=== PATIENT | female | born 1965 | race Caucasian/White ===

== ENCOUNTER 2017-10-20 05:19 | Inpatient (IN) | payer BC ==
[2017-10-03 11:31] VITALS: BMI 29.0
--- NOTE | 2017-10-03 12:07 | PAT Medication Instructions ---
Service Date Oct 03, 2017. Current Home Medication List Ascorbic Acid (Vitamin C), 500 MG PO QAM Calcium/Vitamin D (Os-Favio 500 Plus D), 1 TAB PO HS Cyanocobalamin (Vitamin B-12), 2,000 MCG PO HS Fish Oil (Plano-3), 2 CAP PO HS Bvpfskqpwff-Rbakzzxpeaj-Hof C- (Glucosamine Chondroitin), 2 TAB PO QAM Multivitamin (Multivitamin), 1 TAB PO HS Naproxen (Aleve), 220 MG PO PRN [Iron], 65 MG PO QPM Medication Instructions For Your Scheduled Surgery - Hold the following medications 1 week prior to surgery per surgeon: Naproxen (Aleve), 220 MG PO PRN Fish Oil (Plano-3), 2 CAP PO HS Nfyswgjrgpk-Dmqikeuhxmv-Rir C- (Glucosamine Chondroitin), 2 TAB PO QAM - Hold the following medications the morning of surgery: Ascorbic Acid (Vitamin C), 500 MG PO QAM - Take the following medications as scheduled the night before surgery: Calcium/Vitamin D (Os-Favio 500 Plus D), 1 TAB PO HS Cyanocobalamin (Vitamin B-12), 2,000 MCG PO HS Multivitamin (Multivitamin), 1 TAB PO HS [Iron], 65 MG PO QPM If you have any questions please call us at [phone] or [phone] or [phone]
[2017-10-03 13:16] LABS: BASO % 1.9 %; EOS % 1.3 %; EOS ABS # 0.07 K/uL (0-0.5); HEMATOCRIT 41.6 % (37-47); HEMOGLOBIN 13.5 g/dL (12.0-16.0); LYMPH % 35.5 %; LYMPH ABS # 1.88 K/uL (1.2-3.4); MEAN CELL VOLUME 89.7 fL (80-100); MEAN CORPUSCULAR HEMOGLOBIN 29.1 pg (25-34); MEAN CORPUSCULAR HGB CONC 32.5 g/dl (32-36); MEAN PLATELET VOLUME 10.7 fL (7.4-10.4); MONO % 5.7 %; NEUT % 55.6 %; NEUT ABS # 2.94 K/uL (1.4-6.5); PLATELET COUNT 237 K/uL (130-400); RED CELL DISTRIBUTION WIDTH SD 42.7 fL (36.4-46.3); WHITE BLOOD COUNT 5.29 K/uL (4.8-10.8)
--- NOTE | 2017-10-03 13:18 | DIAGNOSTIC IMAGING REPORT ---
CHEST 2 VIEWS ROUTINE HISTORY: Preop. COMPARISON: Chest 08/01/2016. FINDINGS: The lungs are clear. Cardiac silhouette is normal in size. No pleural effusions. No pneumothorax. IMPRESSION: No acute process. Electronically signed by: Augie Casper M.D. 10/03/2017 1:17 PM Dictated Date/Time: 10/03/2017 1:16 PM
[2017-10-03 13:30] LABS: INR 0.9 (0.9-1.1); PTT PATIENT 28.5 SECONDS (21.0-31.0)
[2017-10-03 13:45] LABS: HEMOGLOBIN A1C 5.7 % (4.5-5.6)
[2017-10-03 14:49] LABS: ALBUMIN 3.9 gm/dl (3.4-5.0); CALCIUM 9.1 mg/dl (8.5-10.1); CREATININE 0.91 mg/dl (0.60-1.20); POTASSIUM 4.3 mmol/L (3.5-5.1)
--- NOTE | 2017-10-09 12:52 | HISTORY & PHYSICAL EXAMINATION ---
DATE OF ADMISSION: 10/20/2017 CHIEF COMPLAINT: Right knee pain. HISTORY OF PRESENT ILLNESS: Mrs. Evans is a 51-year-old female with more than 1 year history of right knee pain. The patient rates her pain a 02/22. She has pain with her daily activities. She has limited standing and walking tolerance. Pain is worse with weightbearing. The patient has had injections, PT, and NSAIDs without relief. She has failed conservative treatment and is scheduled for a right knee replacement. PAST MEDICAL HISTORY: Negative. She denies heart disease, diabetes or DVT. PAST SURGICAL HISTORY: Laminectomy and right knee arthroscopy. SOCIAL HISTORY: The patient denies alcohol or tobacco use. She lives in a 2-brody home. She is . 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 FAMILY HISTORY: Negative for DVT. MEDICATIONS: Glucosamine and chondroitin, fish oil, multivitamin, calcium 600, vitamin C 500 mg, Aleve p.r.n. ALLERGIES: None. REVIEW OF SYSTEMS: See HPI. Ten other systems reviewed, all negative. PHYSICAL EXAMINATION: VITAL SIGNS: Height is 5 feet 4 inches, weight 177 pounds. BMI is 30. GENERAL: This is a well-developed, well-nourished female who is alert and oriented x3. Mood and affect are appropriate. HEENT: Normocephalic, atraumatic. Mucous membranes are moist and intact. NECK: Supple without lymphadenopathy. HEART: Regular rate and rhythm without murmurs, rubs or gallops. LUNGS: Clear to auscultation without wheezes or rhonchi. ABDOMEN: Soft and nontender. Bowel sounds are equal and active. EXTREMITIES: No ecchymosis, redness or warmth. She has varus deformity. Range of motion is from 0-115 degrees with no laxity. She is neurovascularly intact with +5/5 strength. X-RAY EXAMINATION: AP and lateral views show joint space narrowing and osteophyte formation. IMPRESSION: Degenerative joint disease, right knee. PLAN: The patient will be admitted for a right total knee arthroplasty. We will plan on aspirin for DVT prophylaxis. The patient will likely have home nursing agency for home PT upon discharge.
[~2017-10-20] VITALS: Ht 162.6 cm; Wt 78.4 kg
[2017-10-20] VITALS (11 sets, daily range): BP systolic 105–126; BP diastolic 64–77; PULSE 52–68; TEMP 36.3–36.7; O2SAT 94–99; Ht 162.6 cm; Wt 78.4 kg
[~2017-10-20 05:19] MED LIST: ASCO1CAP3 PO; CALC500C70 PO; CYAN10005 PO; GLUC1CAP35 PO; IRON PO; MULT-506 PO; NAPR1TAB9 PO; OMEG10007 PO
[2017-10-20] MEDS ORDERED: FAMOTIDINE 20 MG TAB PO SCH (06:00)
[2017-10-20] MEDS ORDERED: ACETAMINOPHEN 500 MG TAB PO SCH (06:00)
[2017-10-20] MEDS ORDERED: METOCLOPRAMIDE HCL 10 MG TAB PO SCH (06:00)
[2017-10-20] MEDS ORDERED: DEXAMETHASONE 4 MG TAB PO SCH (06:00)
[2017-10-20] MEDS ORDERED: GABAPENTIN 300 MG CAP PO SCH (06:00)
[2017-10-20] MEDS ORDERED: CeleBREX 200 MG CAP PO SCH (06:00)
[2017-10-20] MEDS ORDERED: ROPIVACAINE 5MG/ML 30 ML 150 MG, BUPIVACAINE 0.5% MPF INJ 30 ML, EpINEphrine HCL INJ 0.... INFIL SCH ×8 (06:00)
[2017-10-20] MEDS ORDERED: CEFAZOLIN 1000MG IV PUSH 7.5 ML IV SCH (06:00)
[2017-10-20] MEDS ORDERED: LACTATED RINGER'S 1000ML 1,000 ML IV SCH ×2 (06:00)
[2017-10-20] MEDS ORDERED: LACTATED RINGER'S 1000ML 500 ML IV SCH (06:00)
[2017-10-20] MEDS ORDERED: ORTHO JOINT ANESTHETIC ONE (06:29)
[2017-10-20] MEDS ORDERED: BACITRACIN 50000 UNIT VIAL ONE (06:29)
[2017-10-20] MEDS ORDERED: POVIDONE-IODINE OP SOLN 30 ML BTL ONE (06:29)
[2017-10-20] MEDS: TRANEXAMIC ACID INJ 1,000 MG in SYRINGE 0 ML IV SCH ×2 (06:30→06:36)
[2017-10-20] MEDS ORDERED: BUPIVACAINE 0.25% 30 ML VIAL ONE (06:37)
[2017-10-20] MEDS ORDERED: BUPIVACAINE 0.5 % 5 MG/1 ML PF 10ML VIAL ONE (06:37)
[2017-10-20] MEDS ORDERED: MIDAZOLAM HCL 1 MG/ML 2ML VIAL ONE ×2 (06:39)
[2017-10-20] MEDS ORDERED: FENTANYL CITRATE INJ 50 MCG/1 ML 2 ML VIAL ONE (06:39)
[2017-10-20] MEDS ORDERED: FENTANYL CITRATE INJ 50 MCG/1 ML 2 ML VIAL IV PRN (06:45)
[2017-10-20] MEDS ORDERED: ATROPINE SULFATE 0.1 MG/ML 5ML SYR IV PRN (06:45)
[2017-10-20] MEDS ORDERED: EpHEDrine SULFATE INJ 50 MG/ML AMP IV PRN (06:45)
[2017-10-20] MEDS ORDERED: ONDANSETRON INJ 2 MG/ML 2 ML VIAL IV PRN ×2 (06:45→08:45)
--- NOTE | 2017-10-20 07:08 | History & Physical Bridge Note ---
H&P Re-Evaluation Bridge Note: I have examined the patient, reviewed the History & Physical and in the interval since the performance of the History & Physical I have noted the following changes of clinical significance: No changes noted
[2017-10-20] MEDS ORDERED: PROPOFOL IV EMULSION 10 MG/ML 20 ML VIAL IV ONE (07:46)
[2017-10-20] MEDS ORDERED: LIDOCAINE HCL 2% 2 ML VIAL (20MG/ML) ONE (07:46)
--- NOTE | 2017-10-20 08:00 | [facility] Post Operative Brief Note ---
Immediate Operative Summary Operative Date Oct 20, 2017. Pre-Operative Diagnosis djd KNEE Post-Operative Diagnosis same Procedure(s) Performed tka R Surgeon Che Hvac Journeyman Surgeon(s) Tj Estimated Blood Loss 10cc Findings Consistent with Post-Op Diagnosis Specimens bone Anesthesia Type MAC Spinal Regional Complication(s) none Disposition Accompanied Pt To Recover: no Disposition: Recovery Room / PACU
[2017-10-20] MEDS ORDERED: MAGNESIUM HYDROXIDE SUSP 30 ML UDC PO PRN (08:45)
[2017-10-20] MEDS ORDERED: MoRPHine SULFATE 2 MG/ML CARP IV PRN (08:45)
[2017-10-20] MEDS ORDERED: ALUMINUM/MAGNESIUM/SIMETH (MAALOX MAX) 30 ML UDC PO PRN (08:45)
[2017-10-20] MEDS: MULTIVITAMIN TAB PO SCH (09:00)
--- NOTE | 2017-10-20 09:06 | DIAGNOSTIC IMAGING REPORT ---
R KNEE 1 OR 2 VIEWS ROUTINE HISTORY: 51 years-old Female AP/LATERAL IN PACU RIGHT KNEE degenerative joint disease. Status post right knee total joint arthroplasty. COMPARISON: None available TECHNIQUE: AP and lateral views of the right knee FINDINGS: Postoperative changes compatible with recent right knee total joint arthroplasty and patella resurfacing. Minimal cortical irregularity is noted along the medial femoral condyle and medial aspect of the proximal tibial metaphysis, likely postsurgical findings without large periprosthetic fracture or malalignment identified. Surgical drain is in place along with expected postsurgical soft tissue swelling and deep tissue air. No retained foreign body identified. IMPRESSION: Status post right knee total joint arthroplasty and patellar resurfacing with satisfactory alignment. The above report was generated using voice recognition software. It may contain grammatical, syntax or spelling errors. Electronically signed by: Liam De Oliveira M.D. 10/20/2017 9:04 AM Dictated Date/Time: 10/20/2017 8:59 AM
--- NOTE | 2017-10-20 09:25 | Anesthesiology Progress Note ---
Anesthesia Post Op Note Date & Time Oct 20, 2017 at 09:25 Vital Signs Pain Intensity: 0 Vital Signs Past 12 Hours Date Time Temp Pulse Resp B/P (MAP) Pulse Ox O2 Delivery O2 Flow Rate FiO2 10/20/17 09:11 117/65 10/20/17 09:08 59 13 97 10/20/17 09:08 36.7 58 16 117/65 (77) 97 Room Air 10/20/17 09:08 58 13 10/20/17 09:07 59 15 97 10/20/17 09:07 58 15 10/20/17 09:06 104/60 10/20/17 09:02 62 13 97 10/20/17 09:02 62 13 10/20/17 09:01 116/67 10/20/17 08:57 67 14 96 10/20/17 08:57 65 14 10/20/17 08:56 62 14 10/20/17 08:56 62 14 106/61 97 10/20/17 08:51 69 14 109/66 96 10/20/17 08:51 69 14 10/20/17 08:46 69 13 114/64 96 10/20/17 08:46 69 13 10/20/17 08:42 115/65 10/20/17 08:41 36.6 72 11 115/65 96 Room Air 10/20/17 05:45 36.7 58 20 120/77 97 Room Air Notes Neuraxial Anesthesia: was administered, sensory block is resolving
--- NOTE | 2017-10-20 09:31 | OPERATIVE REPORT ---
DATE OF OPERATION: 10/20/2017 PREOPERATIVE DIAGNOSIS: Osteoarthritis, right knee. POSTOPERATIVE DIAGNOSIS: Osteoarthritis, right knee. PROCEDURE: Right total knee arthroplasty. SURGEON: Dr. Bolton. COMPLICATIONS: None. OPERATION AND FINDINGS: Following induction of spinal anesthesia, the patient's right leg was prepped and draped in the usual sterile manner. Limb was exsanguinated with an Esmarch bandage and tourniquet was inflated to 350 mmHg. A longitudinal incision was made anteriorly. Subcutaneous tissue was sharply dissected. Electrocautery was used for hemostasis. Prepatellar bursa was incised and median parapatellar incision was performed. Patella was everted and the knee was flexed. Fat pad was removed to aid in visualization and the anterior and posterior cruciate ligaments were removed. The medial face of the tibia was cleared of soft tissue first with a Bovie and a Carlson elevator. This tissue was retracted posteriorly using a blunt Hohmann. A Moreno retractor was used to expose the synovium above on the anterior aspect of the femur and this was removed down to bone. The PSI guide was placed on the distal femur and two pins were placed anteriorly and kept in position and two additional pins were placed distally and removed. The distal femoral cutting block was placed in position and the distal femoral cut was used in the +0 setting. Next, the cutting block was removed and the femoral size 3 block was placed in the distal end of the femur. Care was taken to ensure appropriate external rotation and feeler gauge was used to ensure no notching would occur. The femoral block was centered on the distal femur and in the medial and lateral direction and was fixed using two bone screws. The gold pins were then removed. The oscillating saw was used to create the bone cuts and the distal femoral cutting block was removed and the reciprocating saw was used to further trim the femoral cuts as well as a deep in the area for the trochlear groove. Next, posterior condyle remnants were removed. Following this, a meniscal clamp and knife were utilized to remove the anterior portion of both medial and lateral meniscus. The proximal tibia PSI guide was placed into position and the proximal tibial cutting guide was screwed into position. The extra medullary alignment guide was utilized to ensure appropriate alignment. The proximal tibia was cut and the proximal tibial cutting block was removed and this bone fragment was removed. The appropriate guide was used to perform the notch cut on the distal femur and a lamina bleach boiler filler and a cochlear knife were utilized to finish both medial and lateral meniscectomies to remove any remnants of the posterior or anterior cruciate ligaments. Following this, the distal femoral component was impacted into position and blunt Rj was used to sublux the tibia anteriorly. The proximal tibia was sized and a size 2 tibial tray was chosen as the size to be used. This was put into position and appropriate external rotation and a double check with extramedullary alignment guide was performed. The canal for the tibial stem was prepared first with a 17-mm drill and then the punch and a mallet and the trial tibial poly was placed. A size 13 was chosen the size to be used. It was brought to extension and the patella was prepared with the patellar reamer. A size 3 component was chosen the size to be used. The trial component was placed and knee was taken through a full range of motion and there was found to be no lateral subluxation of the tibia. No lateral release was required. The trials were all removed. The final components were obtained and assembled. Cement was mixed. The knee was thoroughly irrigated and the ortho mix was injected about the knee joint. The final components were cemented into position. After thoroughly suctioning and drying the bone ends, all excess cement was removed. The knee was held in extension while the cement hardened. The wound was irrigated and closed over a Hemovac drain. #1 Vicryl was used to close the extensor mechanism. Subcutaneous tissues closed using 0 Dexon. Skin was closed with elías. Sterile dressing of Adaptic, 4 x 4's, sterile Webril, and Markus was applied. The patient tolerated the procedure well. DISPOSITION: Recovery room, stable. I attest to the content of the Intraoperative Record and any orders documented therein. Any exceptions are noted below. JESSICA
[2017-10-20] MEDS: D5W AND 1/2NSS + 20MEQ KCL 1,000 ML IV SCH ×2 (10:28→20:17)
[2017-10-20] MEDS: ASPIRIN 81 MG ECTAB PO SCH ×2 (10:33→20:18)
[2017-10-20] MEDS: DOCUSATE SODIUM 100 MG CAP PO SCH ×2 (10:33→20:18)
[2017-10-20] MEDS: FERROUS GLUCONATE 324 MG TAB PO SCH ×2 (13:06→17:23)
[2017-10-20] MEDS: ACETAMINOPHEN 500 MG TAB PO SCH ×2 (14:13→22:00)
[2017-10-20] MEDS: CEFAZOLIN IV 1,000 MG in SYRINGE 2.5 ML IV SCH ×2 (14:17→22:00)
[2017-10-20] MEDS: OXYCODONE HCL IR 5 MG TAB (IMMEDIATE RELEASE) PO PRN ×2 (15:17→23:59)
[2017-10-20] MEDS: CeleBREX 200 MG CAP PO SCH (20:19)
[2017-10-20] MEDS ORDERED: SENNA 8.6 MG TAB PO SCH (21:00)
[2017-10-21 04:05] VITALS: BP 107/57; PULSE 54; TEMP 36.5; O2SAT 96
[2017-10-21] MEDS: OXYCODONE HCL IR 5 MG TAB (IMMEDIATE RELEASE) PO PRN ×3 (04:23→13:56)
[2017-10-21] MEDS: ACETAMINOPHEN 500 MG TAB PO SCH ×2 (06:05→12:59)
[2017-10-21] MEDS: D5W AND 1/2NSS + 20MEQ KCL 1,000 ML IV SCH (06:05)
[2017-10-21] MEDS: TRAMADOL HCL 50 MG TAB PO PRN ×2 (06:07→11:50)
[2017-10-21 06:27] LABS: HEMATOCRIT 32.4 % (37-47); HEMOGLOBIN 10.8 g/dL (12.0-16.0); MEAN CELL VOLUME 89.8 fL (80-100); MEAN CORPUSCULAR HEMOGLOBIN 29.9 pg (25-34); MEAN CORPUSCULAR HGB CONC 33.3 g/dl (32-36); MEAN PLATELET VOLUME 10.8 fL (7.4-10.4); PLATELET COUNT 182 K/uL (130-400); RED CELL DISTRIBUTION WIDTH CV 13.1 % (11.5-14.5); RED CELL DISTRIBUTION WIDTH SD 42.8 fL (36.4-46.3); WHITE BLOOD COUNT 11.44 K/uL (4.8-10.8)
[2017-10-21 06:58] LABS: CALCIUM 7.9 mg/dl (8.5-10.1); CREATININE 0.75 mg/dl (0.60-1.20); POTASSIUM 4.1 mmol/L (3.5-5.1)
[2017-10-21 07:10] VITALS: BP 116/69; PULSE 58; TEMP 36.6; O2SAT 94
--- NOTE | 2017-10-21 08:59 | Orthopedic Progress Note ---
Orthopedic Progress Note Date of Service Oct 21, 2017. Subjective Post OP Day: 1 Reports: feeling well Additional Notes: Having some thigh pain from the tourniquet. No other complaints. Objective calves soft nontender, N/V intact, dressing C/D/I, A&O x3, toes mobile, hemovac drainage (10ml latest shift) Date Time Temp Pulse Resp B/P (MAP) Pulse Ox O2 Delivery O2 Flow Rate FiO2 10/21/17 07:40 Room Air 10/21/17 07:10 36.6 58 19 116/69 (85) 94 Room Air 10/21/17 04:05 36.5 54 16 107/57 (74) 96 Room Air 10/21/17 00:08 Room Air 10/20/17 23:35 36.4 62 16 110/65 (80) 95 Room Air 10/20/17 20:07 36.5 52 18 105/64 (78) 94 Room Air 10/20/17 15:04 36.6 66 18 108/72 (84) 96 Room Air 10/20/17 15:00 Room Air 10/20/17 12:35 36.3 56 16 115/72 (86) 96 Room Air 10/20/17 11:35 36.3 53 16 111/72 (85) 97 Room Air 10/20/17 10:43 98 Room Air 10/20/17 10:35 36.4 55 14 107/65 (79) 98 Room Air 10/20/17 10:05 36.6 55 16 114/76 (89) 99 Room Air 10/20/17 09:35 36.6 68 16 126/74 (91) 98 Room Air 10/20/17 09:35 Room Air 10/20/17 09:35 Room Air 10/20/17 09:22 58 14 10/20/17 09:22 58 14 95 10/20/17 09:21 122/61 10/20/17 09:17 58 13 97 10/20/17 09:17 58 13 10/20/17 09:16 119/62 10/20/17 09:12 56 14 10/20/17 09:12 56 14 97 10/20/17 09:11 117/65 10/20/17 09:08 59 13 97 10/20/17 09:08 36.7 58 16 117/65 (77) 97 Room Air 10/20/17 09:08 58 13 10/20/17 09:07 59 15 97 10/20/17 09:07 58 15 10/20/17 09:06 104/60 10/20/17 09:02 62 13 97 10/20/17 09:02 62 13 10/20/17 09:01 116/67 Laboratory Results 24 Hours: Test 10/21/17 05:43 Hematocrit 32.4 % Hemoglobin 10.8 g/dL Assessment & Plan Assessment: POD 1 s/p Right TKA Plan: PT/OT Planning for Home Health services Possible dc to home today Inhouse Planning Pain Management: Celebrex, Ultram, Morphine, PO Tylenol, Oxy IR DVT Prophylaxis: TEDs, SCDs, ASA Discharge Planning Discharge Planning: home with home health
[2017-10-21] MEDS ORDERED: RXC5 PO (09:06)
[2017-10-21] MEDS ORDERED: ACET-24 PO (09:06)
[2017-10-21] MEDS ORDERED: CLB200 PO (09:06)
[2017-10-21] MEDS ORDERED: ASPEC81 PO (09:06)
[2017-10-21] MEDS ORDERED: SENN-61 PO (09:06)
[2017-10-21] MEDS: DOCUSATE SODIUM 100 MG CAP PO SCH (09:07)
[2017-10-21] MEDS: FERROUS GLUCONATE 324 MG TAB PO SCH ×2 (09:08→12:58)
[2017-10-21] MEDS: ASPIRIN 81 MG ECTAB PO SCH (09:08)
[2017-10-21] MEDS: MULTIVITAMIN TAB PO SCH (09:08)
[2017-10-21] MEDS: CeleBREX 200 MG CAP PO SCH (09:09)
--- NOTE | 2017-10-21 09:14 | Discharge Instructions ---
Discharge Instructions Date of Service Oct 21, 2017. Admission Reason for Admission: Right Knee Osteoarthritis Discharge Discharge Diagnosis / Problem: Right Knee Djd Discharge Goals Goal(s): Decrease discomfort, Improve function, Increase independence Activity Recommendations Activity Limitations: per Instructions/Follow-up section Weightbearing Status: Right weightbearing (as tolerated) . Instructions / Follow-Up Instructions / Follow-Up ACTIVITY RECOMMENDATIONS: SELF CARE INSTRUCTIONS AFTER TOTAL KNEE REPLACEMENT A. You may need to continue a physical therapy program after discharge from the hospital. There are several options available to you. Your doctor will assist you in selecting the best one for you. 1. An out-patient facility 2 to 3 times a week for therapy or home therapy. 2. Continue working on all exercises taught to you in the hospital. Your goals should be to increase bending of your knee to 90 degrees and beyond and to fully straighten your knee. B. You may progress at your own pace from walking with a walker or crutches to a cane; then to no assistive devices. C. Make walking a part of your daily routine. Be up as much as comfortable with rest periods throughout the day. Rest with leg elevation is very important. Use the ice wrap frequently for the first 3-4 weeks. D. There are no restrictions on activities. You may ride in a car, shop, participate in tapper operator and all social activities. E. Wear the long elastic stockings (RANJANA hose) 20 hours a day for 2 weeks after surgery. They can be removed several times a day for laundering and for a bath. F. You may shower, no tub baths until cleared by your doctor. SPECIAL CARE INSTRUCTIONS: VERY IMPORTANT TO READ AND REVIEW A. There are a few signs you need to watch for after you are home. Call [facility] if you notice any of the followin. Increased severe knee pain. Some pain is expected especially when you exercise. 2. Increased swelling in your leg or knee; pain or swelling of the calf muscle in either lower leg. 3. Any fluid drainage from the incision. 4. Shortness of breath or chest pain. B. Please call [facility] at if you have any concerns or questions about your operation or recovery. The doctor or his nurse will return your call promptly. C. You must take antibiotics before dental work, bladder, bowel or other surgery. Your doctor will provide you with a permanent care to carry describing this precaution. IMPORTANT: * REMEMBER TO TAKE ASPIRIN, 81 MG, TWICE DAILY FOR 4 WEEKS UNLESS OTHERWISE DIRECTED. THIS IS YOUR BLOOD THINNER. * HIGH RISK PATIENTS MAY BE PRESCRIBED A STRONGER BLOOD THINNER. THIS WILL BE PROVIDED AT DISCHARGE. * CALL IF INCREASED PAIN, REDNESS, DRAINAGE OR FEVER GREATER THAT 101. * WEAR RANJANA HOSE 20 HOURS PER DAY FOR 2 WEEKS. * You have a Zipline closure strip on your wound. This will remain on for 14 days. You may shower in 72 hours with this on. Do not soak it. No tub baths. Clean around the wound but do not scrub it. Keep the wound covered with gauze (4x4's or similar) to keep it protected. This also will protect the Zipline from getting caught on your clothes. Call the office if you notice the Zipline is coming off or if the wound is opening up. [phone] FOLLOW UP VISIT: If appointment is not already scheduled: Please call [facility] to make a follow-up appointment for 2 weeks after your surgery at . Current Hospital Diet Patient's current hospital diet: Regular Diet Discharge Diet Recommended Diet: Regular Diet Procedures Procedures Performed: Right Total Knee Arthroplasty Pending Studies Studies pending at discharge: no Laboratory Results Hemoglobin A1c Test 10/03/17 12:16 Range/Units Estimated Average Glucose 117 mg/dl Hemoglobin A1c 5.7 H 4.5-5.6 % Medical Emergencies . Who to Call and When: Medical Emergencies: If at any time you feel your situation is an emergency, please call 911 immediately. . Non-Emergent Contact Non-Emergency issues call your: Surgeon Call Non-Emergent contact if: temperature is above 101.5, your pain is not controlled, your pain is worsening, wound has increased drainage, wound has increased redness . "Provider Documentation" section prepared by Crispin Spencer. . VTE Core Measure Inpt VTE Proph given/why not?: Other Anticoagulation, T.E.D. Stockings, SCD's [place] Drug Monitoring Program Search Results: patient reviewed within database, no issues identified
--- NOTE | 2017-10-21 11:04 | Anesthesiology Progress Note ---
Anesthesia Post Op Note Date & Time Oct 21, 2017 at 11:03 Vital Signs Vital Signs Past 12 Hours Date Time Temp Pulse Resp B/P (MAP) Pulse Ox O2 Delivery O2 Flow Rate FiO2 10/21/17 07:40 Room Air 10/21/17 07:10 36.6 58 19 116/69 (85) 94 Room Air 10/21/17 04:05 36.5 54 16 107/57 (74) 96 Room Air 10/21/17 00:08 Room Air 10/20/17 23:35 36.4 62 16 110/65 (80) 95 Room Air Notes Mental Status: alert / awake / arousable, participated in evaluation Pt Amnestic to Procedure: Yes Nausea / Vomiting: adequately controlled Pain: adequately controlled Airway Patency, RR, SpO2: stable & adequate BP & HR: stable & adequate Hydration State: stable & adequate Neuraxial Anesthesia: sensory block resolved Anesthetic Complications: no major complications apparent
[2017-10-21 11:32] VITALS: BP 116/74; PULSE 57; TEMP 36.3; O2SAT 98
[2017-10-21 13:38] VITALS: BP 116/74; PULSE 57; TEMP 36.3; O2SAT 98
[2017-10-21] MEDS ORDERED: NURSING VERBAL MED ORDER ONE (14:00)
== END 2017-10-21 14:45 | disposition home health service (06) | DRG 470 ==
LOC: C.ACU 05:19 → C.3E 08:46 → ENRESERV 09:09
PROC: 0SRC0J9 Replacement of Right Knee Joint with Synthetic Substitute, Cemented, Open Approach (ICD-10-PCS; principal; 2017-10-20 07:00)
DX: M17.11 Unilateral primary osteoarthritis, right knee (principal); Z79.899 Other long term (current) drug therapy